=== PATIENT | female | born 1975 | race Caucasian/White ===

== ENCOUNTER 2017-12-06 13:31 | Emergency (ER) | payer OTHER ==
[~2017-12-06] VITALS: Ht 157.5 cm; Wt 67.1 kg
[~2017-12-06 13:31] MED LIST: AMOXICILLIN875 M1 PO; ARMOUR THYROID120 M1 PO; CYCLOBENZAPRINE10 M1 PO; NUVARING VAGIN1 EACH VG; SERTRALINE HCL100 MG PO; VICODIN 5-3001 EACH PO
[2017-12-06 15:47] LABS: ABSOLUTE BASOPHIL COUNT 0.1 /CUMM (0.0-0.2); ABSOLUTE EOSINOPHIL COUNT 0.2 /CUMM (0.0-0.7); ABSOLUTE GRANULOCYTE CT 5.7 /CUMM (1.4-6.5); ABSOLUTE MONOCYTE COUNT 0.7 /CUMM (0.10-0.60); BASOPHIL % 0.7 % (0.0-2.0); GRANULOCYTE % 66.4 % (42.2-75.2); HEMATOCRIT 39.1 % (37-47); MEAN CORPUSCULAR HGB 28.9 PG (27.0-31.0); MEAN CORPUSCULAR HGB CONC 33.6 G/DL (33.0-37.0); MEAN CORPUSCULAR VOLUME 86.1 FL (81.0-99.0); MEAN PLATELET VOLUME 8.6 FL (7.4-10.4); PLATELET COUNT 371 /CUMM (130-400); RBC DISTRIBUTION WIDTH 13.1 % (11.5-14.5); RED BLOOD CELL CT 4.54 /CUMM (4.20-5.40); WHITE BLOOD CELL COUNT 8.6 /CUMM (4.8-10.8)
--- NOTE | 2017-12-06 15:56 | ED INFLUENZA/URI COMPLAINT ---
History of Present Illness General Chief Complaint: General Adult Stated Complaint: COUGHING UP BLOOD Source: patient, old records Exam Limitations: no limitations Vital Signs & Intake/Output Vital Signs & Intake/Output Vital Signs Date Time Temp Pulse Resp B/P B/P Pulse O2 O2 Flow FiO2 Mean Ox Delivery Rate 12/06 1658 98.8 90 18 147/98 98 Room Air 12/06 1356 97.4 93 20 147/90 96 Room Air Allergies Coded Allergies: No Known Allergies (02/22/16) Reconcile Medications Amoxicillin 875 MG TABLET 1 TAB PO BID sinusitis Etonogestrel/Ethinyl Estradiol (Nuvaring Vaginal Ring) 1 EACH VAG.RING 1 EACH VG Q30D CONTROL (Reported) use for 3 weeks, skip for 1 week Hydrocodone/Acetaminophen (Vicodin 5-300 MG Tablet) 1 EACH TABLET 1 TAB PO Q6HR PRN PAIN Sertraline HCl 100 MG TABLET 1 TAB PO DAILY MENTAL HEALTH (Reported) Thyroid,Pork ([place] Thyroid) 120 MG TABLET 1 TAB PO DAILY THYROID (Reported) Triage Note: PT SENT TO ED FOR FURTHER EVAL ? ADMISSION OF HEMOPTYSIS. WAS SEEN IN ED ON FRIDAY AND SENT HOME WITH PO ABX. PT HAS BEEN HAVING 3-4 EPISODES OF HEMOPTYSIS DAILY SINCE. STATES IT IS 60-75 CC OF BLOOD. SENT IN BY TOYIN LAMBERT. Triage Nurses Notes Reviewed? yes : No Patient currently breastfeeds: No HPI: 42F no PMH, recently seen in ED for cough, weakness, and hemoptysis, returns with continued hemoptysis and no improvement after being on Amoxicillin. General fatigue and weakness with significant hemoptysis, CTA chest showed no clot but bronchitis. Afebrile, eating well, no respiratory distress or chest pain. Hemoptysis is significant, 60mL every few hours. No symptoms of blood loss or anemia. Past History Travel History Traveled to [place] past 21 day No Medical History Any Pertinent Medical History? see below for history Neurological: NONE EENT: NONE Cardiovascular: NONE Respiratory: NONE Gastrointestinal: NONE Hepatic: NONE Renal: NONE Musculoskeletal: NONE Psychiatric: NONE Endocrine: hypothyroidism Blood Disorders: NONE Cancer(s): NONE AUTOMATION DEVELOPER/Reproductive: NONE Surgical History Surgical History: non-contributory Psychosocial History What is your primary language Slovak Tobacco Use: Quit >30 days ago ETOH Use: denies use Illicit Drug Use: denies illicit drug use Family History Hx Contributory? No Review of Systems Review of Systems Constitutional: Reports: no symptoms. EENTM: Reports: no symptoms. Respiratory: Reports: no symptoms. Cardiovascular: Reports: no symptoms. GI: Reports: no symptoms. Genitourinary: Reports: no symptoms. Musculoskeletal: Reports: no symptoms. Skin: Reports: no symptoms. Neurological/Psychological: Reports: no symptoms. Hematologic/Endocrine: Reports: no symptoms. Immunologic/Allergic: Reports: no symptoms. All Other Systems: Reviewed and Negative Physical Exam Physical Exam General Appearance: well developed/nourished, no apparent distress Head: atraumatic, normal appearance Eyes: Bilateral: normal appearance. Ears, Nose, Throat: normal ENT inspection, moist mucous membrane, hearing grossly normal Neck: normal inspection, supple, full range of motion Respiratory: chest non-tender, no respiratory distress, RLL rhonchi Cardiovascular: regular rate/rhythm Gastrointestinal: soft, non-tender Back: normal inspection, normal range of motion Extremities: normal inspection Neurologic/Psych: awake, alert, oriented x 3, normal mood/affect Skin: intact, normal color, warm/dry Core Measures Sepsis Present: No Sepsis Focused Exam Completed? No Progress Differential Diagnosis: influenza, meningitis, neutropenia, otitis, pneumonia, pharyngitis, sinusitis Plan of Care: Orders Procedure Date/time Status CBC WITHOUT DIFFERENTIAL 12/06 1411 Complete Laboratory Tests 12/06/17 1534: CBC w Diff NO MAN DIFF REQ, RBC 4.54, MCV 86.1, MCH 28.9, MCHC 33.6, RDW 13.1, MPV 8.6, Gran % 66.4, Lymphocytes % 23.1, Monocytes % 7.8, Eosinophils % 2.0, Basophils % 0.7, Absolute Granulocytes 5.7, Absolute Lymphocytes 2.0, Absolute Monocytes 0.7 H, Absolute Eosinophils 0.2, Absolute Basophils 0.1 Diagnostic Imaging: Viewed by Me: Radiology Read. Discussed w/RAD: Radiology Read. Radiology Impression: PATIENT: VASILIY RUGGIERO PRESENT AGE: 42 PATIENT ACCOUNT NO: [id number] : 74 LOCATION: [facility] ORDERING PHYSICIAN: Seble Bond MD SERVICE DATE: 12/06/17 EXAM TYPE : RAD - XRY-PORTABLE CHEST XRAY EXAMINATION: XR PORTABLE CHEST CLINICAL INFORMATION: Worsening hemoptysis and weakness. COMPARISON: CTA of the chest dated 12/04/2017. TECHNIQUE: Portable frontal view of the chest was obtained. FINDINGS: The lungs are clear. No pleural effusion. Previously noted bronchial wall thickening in the lungs on CT chest dated 12/04/2017 is not apparent on this radiograph. Cardiomediastinal silhouette and pulmonary vasculature are within normal limits. No acute osseous findings. IMPRESSION: No evidence of acute cardiopulmonary disease. DICTATED BY: Nirav Crow MD DATE/TIME DICTATED:08/13 HOOF TRIMMER:RENE DATE/TIME TRANSCRIBED:12/06/171605 Initial ED EKG: none Departure Departure Disposition: OTHER [facility] ([facility] Condition: Stable Clinical Impression Primary Impression: Hemoptysis Secondary Impressions: Acute bronchitis Referrals: Diamond JEAN,Diamond (PCP/Family) Johana Fregoso MD Departure Forms: Customer Survey General Discharge Information Levofloxacin 1 TAB PO DAILY #10 TAB Benzonatate (Tessalon Perle) 1 CAP PO TID #21 CAP
--- NOTE | 2017-12-06 16:12 | RADIOLOGY REPORT ---
EXAMINATION: XR PORTABLE CHEST CLINICAL INFORMATION: Worsening hemoptysis and weakness. COMPARISON: CTA of the chest dated 12/04/2017. TECHNIQUE: Portable frontal view of the chest was obtained. FINDINGS: The lungs are clear. No pleural effusion. Previously noted bronchial wall thickening in the lungs on CT chest dated 12/04/2017 is not apparent on this radiograph. Cardiomediastinal silhouette and pulmonary vasculature are within normal limits. No acute osseous findings. IMPRESSION: No evidence of acute cardiopulmonary disease.
[2017-12-06] MEDS ORDERED: LEVOFLOXACIN500 M1 PO (16:22)
[2017-12-06] MEDS ORDERED: TESSALON PERLE100 M1 PO (16:22)
[2017-12-06 16:58] VITALS: BP 147/98
== END 2017-12-06 17:43 | disposition short-term general hospital (02) ==
LOC: ERH 13:31
PROVIDERS: Emergency Medicine
DX: J20.9 Acute bronchitis, unspecified (principal); Z87.891 Personal history of nicotine dependence
CPT/HCPCS: 71045